=== PATIENT | female | born 1975 | race Caucasian/White ===

== ENCOUNTER → 2017-11-28 | Outpatient (CLI) | payer BC ==
[~2017-11-28] MED LIST: AZI250 PO; MULTIVIT
--- NOTE | 2017-11-28 15:22 | RADIOLOGY IMAGING REPORT ---
FAC[facility] PATIENT NAME: SARINA MACHADO : [id number] MR: [id number] V: [id number] EXAM DATE: ORDERING PHYSICIAN: GAYE SKY TECHNOLOGIST: Shona Cordero PROCEDURE:BILATERAL DIGITAL SCREENING MAMMOGRAM WITH CAD ASSISTED INTERPRETATION & 3D TOMOSYNTHESIS COMPARISON:Prior mammograms 01/14/17, 01/13/16. INDICATIONS:SCREENING FINDINGS: The breasts are heterogeneously dense. No significant mass, microcalcification or architectural distortion. No change compared to priors. DIAGNOSTIC CATEGORY 1--NEGATIVE. RECOMMENDATIONS: ROUTINE MAMMOGRAM AND CLINICAL EVALUATION. IMPRESSION: BIRADS 1: Negative. Annual mammographic screening recommended. Dictated by: Ashwin Waldrop on 11/28/2017 at 12:23 Transcribed by: TONYA on 11/28/2017 at 13:18 Approved by: Ashwin Waldrop on 11/28/2017 at 15:22 [facility]
== END ==
LOC: MAMO 03:00
PROVIDERS: ATTEND Obstetrics & Gynecology
DX: Z12.31 Encounter for screening mammogram for malignant neoplasm of breast (principal)
CPT/HCPCS: 77063; 77067